=== PATIENT | male | born 1955 | race Caucasian/White ===

== ENCOUNTER → 2018-08-24 | Outpatient (CLI) | payer OTHER ==
[2018-08-24 11:16] LABS: Basophils # (A) 0.1 k/uL (0-0.2); Basophils % (A) 2 %; Eosinophils # (A) 0.2 k/uL (0-0.7); Eosinophils % (A) 3 %; HCT 44.3 % (39.0-53.0); HGB 14.7 gm/dL (13.0-17.5); Lymphocytes # (A) 1.6 k/uL (1.0-4.8); Lymphocytes % (A) 24 %; MCH 29.9 pg (25.0-35.0); MCHC 33.3 g/dL (31.0-37.0); MCV 89.9 fL (80.0-100.0); Mean Platelet Volume 6.4; Monocytes # (A) 0.6 k/uL (0-1.0); Monocytes % (A) 8 %; Neutrophils # (A) 4.1 k/uL (1.3-7.7); Neutrophils % (A) 60 %; Platelet Count 315 k/uL (150-450); RBC 4.93 m/uL (4.30-5.90); RDW 12.4 % (11.5-15.5); WBC 6.8 k/uL (3.8-10.6)
[2018-08-24 16:39] LABS: Albumin 4.5 g/dL (3.80-4.90); Albumin/Globulin Ratio 2.25 (1.60-3.17); Anion Gap 8.5 mmol/L (4.00-12.00); Calcium 9.2 mg/dL (8.7-10.3); Carbon Dioxide 26.5 mmol/L (21.6-31.8); Potassium 4.8 mmol/L (3.5-5.5); Total Bilirubin 0.4 mg/dL (0.3-1.2); Total Protein 6.5 g/dL (6.2-8.2)
== END | disposition home or self-care (01) ==
LOC: LABWHC1 10:30
PROVIDERS: ATTEND Surgery
DX: K81.1 Chronic cholecystitis (principal)
CPT/HCPCS: 36415; 80053; 85025

== ENCOUNTER 2018-08-31 08:27 | Inpatient (IN) | payer OTHER ==
[2018-08-31] MEDS ORDERED: HYDROmorphone 0.5 MG/0.5 ML SYRINGE IVP STA (08:34)
[2018-08-31] MEDS ORDERED: SODIUM CHLORIDE 0.9% 1,000 ML IV STA ×2 (08:34)
[2018-08-31] MEDS ORDERED: ONDANSETRON 4 MG/2 ML VIAL IVP STA (08:34)
--- NOTE | 2018-08-31 08:40 | ED ---
Abdominal Pain HPI - General Source: patient, RN notes reviewed Mode of arrival: ambulatory Limitations: no limitations <Noah Vaughan - Last Filed: 08/31/18 10:57> <Venkata Hunter - Last Filed: 08/31/18 11:12> - General Chief Complaint: Abdominal Pain Stated Complaint: Gallbladder issue Time Seen by Provider: 08/31/18 08:33 - History of Present Illness Initial Comments: 62-year-old male presents emergency Department with chief complaint of abdominal pain. Patient had issues ongoing for last 6 months but have worsened in the last month especially last few days. He states the pain was so unbearable last night he cannot sleep. Patient states that he is scheduled for cholecystectomy tomorrow by Dr. evans Patient states that he does have some current nausea no vomiting no diarrhea no constipation. He has had Ultram past which shows evidence of gallstones. Patient reports no fevers or chills no chest pain or shortness of breath. (Noah Vaughan) - Related Data Home Medications Medication Instructions Recorded Confirmed Omeprazole [PriLOSEC] 40 mg PO DAILY 07/18/18 08/31/18 Tamsulosin HCl [Flomax] 0.4 mg PO DAILY 07/18/18 08/31/18 Zolpidem Tartrate [Ambien] 10 mg PO HS PRN 07/18/18 08/31/18 Acetaminophen Tab [Tylenol Tab] 1,000 mg PO Q6HR PRN 08/31/18 08/31/18 Allergies Allergy/AdvReac Type Severity Reaction Status Date / Time No Known Allergies Allergy Verified 08/31/18 08:44 Review of Systems ROS Other: All systems not noted in ROS Statement are negative. <Noah Vaughan - Last Filed: 08/31/18 10:57> ROS Other: All systems not noted in ROS Statement are negative. <Venkata Hunter - Last Filed: 08/31/18 11:12> ROS Statement: Those systems with pertinent positive or pertinent negative responses have been documented in the HPI. Past Medical History Past Medical History: GERD/Reflux History of Any Multi-Drug Resistant Organisms: None Reported Additional Past Surgical History / Comment(s): HEMORRHOIDECTOMY Past Anesthesia/Blood Transfusion Reactions: No Reported Reaction Past Psychological History: No Psychological Hx Reported Smoking Status: Former smoker Past Alcohol Use History: Occasional - Past Family History Mother Sister(s) Family Medical History: Cancer <Noah Vaughan - Last Filed: 08/31/18 10:57> General Exam General appearance: alert, in no apparent distress Head exam: Present: atraumatic, normocephalic, normal inspection Neck exam: Present: normal inspection. Absent: tenderness, meningismus, lymphadenopathy Respiratory exam: Present: normal lung sounds bilaterally. Absent: respiratory distress, wheezes, rales, rhonchi, stridor Cardiovascular Exam: Present: regular rate, normal rhythm, normal heart sounds. Absent: systolic murmur, diastolic murmur, rubs, gallop, clicks GI/Abdominal exam: Present: soft, tenderness (Moderate right upper quadrant), normal bowel sounds. Absent: distended, guarding, rebound, rigid Back exam: Absent: CVA tenderness (R), CVA tenderness (L) Skin exam: Present: warm, dry, intact, normal color. Absent: rash <Noah Vaughan - Last Filed: 08/31/18 10:57> Course <Venkata Hunter - Last Filed: 08/31/18 11:12> Vital Signs 08/31/18 08:28 Temperature 98.8 F Pulse Rate 87 Respiratory 18 Rate Blood Pressure 151/88 O2 Sat by Pulse 98 Oximetry - Reevaluation(s) Reevaluation #1: 08/31/18 11:11 PA supervision: I proceeded [id number] evaluation patient did discuss findings with the patient has . Patient does present with abdominal pain and elevated bilirubin as well as LFTs. Patient was scheduled to have his gallbladder removed tomorrow he will be admitted to Dr. wendi jasmine which did discuss the case with consultation by Dr. Puri who I also did notify. Also GI will be consulted. (Venkata Hunter) Medical Decision Making - Lab Data Result diagrams: 08/31/18 08:52 08/31/18 10:05 <Noah Vaughan - Last Filed: 08/31/18 10:57> - Lab Data Result diagrams: 08/31/18 08:52 08/31/18 10:05 <Venkata Hunter - Last Filed: 08/31/18 11:12> - Medical Decision Making 62-year-old male presents emergency department for increase abdominal pain. Patient is scheduled for cholecystectomy tomorrow. Patient lab work, IV pain medication, antiemetics and fluid hydration. Patient has evidence of transaminitis, hyperbilirubinemia most likely related to choledocholithiasis. Patient will be admitted to Dr. Evans service with consult GI and medicine. (Noah Vaughan) - Lab Data Lab Results 08/31/18 08/31/18 08/31/18 Range/Units 08:52 09:15 10:05 WBC 11.8 H (3.8-10.6) k/uL RBC 5.45 (4.30-5.90) m/uL Hgb 16.4 (13.0-17.5) gm/dL Hct 49.5 (39.0-53.0) % MCV 90.8 (80.0-100.0) fL MCH 30.1 (25.0-35.0) pg MCHC 33.1 (31.0-37.0) g/dL RDW 13.6 (11.5-15.5) % Plt Count 291 (150-450) k/uL Neutrophils % 82 % Lymphocytes % 7 % Monocytes % 8 % Eosinophils % 1 % Basophils % 1 % Neutrophils # 9.7 H (1.3-7.7) k/uL Lymphocytes # 0.8 L (1.0-4.8) k/uL Monocytes # 0.9 (0-1.0) k/uL Eosinophils # 0.1 (0-0.7) k/uL Basophils # 0.1 (0-0.2) k/uL Sodium 141 (137-145) mmol/L Potassium 4.3 (3.5-5.1) mmol/L Chloride 108 H (98-107) mmol/L Carbon Dioxide 26 (22-30) mmol/L Anion Gap 7 mmol/L BUN 10 (9-20) mg/dL Creatinine 0.81 (0.66-1.25) mg/dL Est GFR (CKD-EPI)AfAm >90 (>60 ml/min/1.73 sqM) Est GFR (CKD-EPI)NonAf >90 (>60 ml/min/1.73 sqM) Glucose 88 (74-99) mg/dL Calcium 8.8 (8.4-10.2) mg/dL Total Bilirubin 4.8 H (0.2-1.3) mg/dL AST 132 H (17-59) U/L ALT 305 H (21-72) U/L Alkaline Phosphatase 323 H (38-126) U/L Total Protein 6.6 (6.3-8.2) g/dL Albumin 3.8 (3.5-5.0) g/dL Lipase 184 (23-300) U/L Urine Color Dark Brown Urine Appearance Clear (Clear) Urine pH 6.0 (5.0-8.0) Ur Specific [place] 1.024 (1.001-1.035) Urine Protein Trace H (Negative) Urine Glucose (UA) Negative (Negative) Urine Ketones 2+ H (Negative) Urine Blood Small H (Negative) Urine Nitrite Negative (Negative) Urine Bilirubin 3+ H (Negative) Urine Urobilinogen 3.0 (<2.0) mg/dL Ur Leukocyte Esterase Negative (Negative) Urine RBC 1 (0-5) /hpf Urine WBC 1 (0-5) /hpf Urine Mucus Rare H (None) /hpf Disposition <Noah Vaughan - Last Filed: 08/31/18 10:57> <Venkata Hunter - Last Filed: 08/31/18 11:12> Clinical Impression: Cholelithiasis, Hyperbilirubinemia, Transaminitis, Abdominal pain Disposition: ADMITTED IP TO THIS HOSP Condition: Fair Referrals: Fercho Abraham MD [Primary Care Provider] - 1-2 days
[2018-08-31 09:46] LABS: Basophils # (A) 0.1 k/uL (0-0.2); Basophils % (A) 1 %; Eosinophils # (A) 0.1 k/uL (0-0.7); Eosinophils % (A) 1 %; HCT 49.5 % (39.0-53.0); HGB 16.4 gm/dL (13.0-17.5); Lymphocytes # (A) 0.8 k/uL (1.0-4.8); Lymphocytes % (A) 7 %; MCH 30.1 pg (25.0-35.0); MCHC 33.1 g/dL (31.0-37.0); MCV 90.8 fL (80.0-100.0); Mean Platelet Volume 7.5; Monocytes # (A) 0.9 k/uL (0-1.0); Monocytes % (A) 8 %; Neutrophils # (A) 9.7 k/uL (1.3-7.7); Neutrophils % (A) 82 %; Platelet Count 291 k/uL (150-450); RBC 5.45 m/uL (4.30-5.90); RDW 13.6 % (11.5-15.5); WBC 11.8 k/uL (3.8-10.6)
[2018-08-31 10:15] LABS: Appearance,Urine Clear (Clear); Bilirubin,Urine 3+ (Negative); Blood,Urine Small (Negative); Color,Urine Dark Brown; Glucose,Urine (UA) Negative (Negative); Ketones,Urine 2+ (Negative); Leukocyte Esterase,Urine Negative (Negative); Mucus,Urine Rare /hpf; Nitrite,Urine Negative (Negative); Protein,Urine Trace (Negative); RBC,Urine 1 /hpf (0-5); Specific Gravity,Urine 1.024 (1.001-1.035); WBC,Urine 1 /hpf (0-5)
[2018-08-31 10:32] LABS: ALT 305 U/L (21-72); AST 132 U/L (17-59); Albumin 3.8 g/dL (3.5-5.0); Alkaline Phosphatase 323 U/L (38-126); Anion Gap 7 mmol/L; Blood Urea Nitrogen 10 mg/dL (9-20); Calcium 8.8 mg/dL (8.4-10.2); Carbon Dioxide 26 mmol/L (22-30); Chloride 108 mmol/L (98-107); Glucose 88 mg/dL (74-99); Lipase 184 U/L (23-300); Sodium 141 mmol/L (137-145); Total Bilirubin 4.8 mg/dL (0.2-1.3); Total Protein 6.6 g/dL (6.3-8.2)
[2018-08-31 10:33] LABS: Potassium 4.3 mmol/L (3.5-5.1)
[2018-08-31] MEDS ORDERED: ONDANSETRON 4 MG/2 ML VIAL IVP PRN (11:10)
[2018-08-31] MEDS ORDERED: HYDROmorphone 1 MG/ML 1 ML SYRINGE IVP PRN (11:10)
[2018-08-31] MEDS ORDERED: NALOXONE 0.4 MG/ML 1 ML VIAL IV PRN (11:10)
[2018-08-31] MEDS ORDERED: PIPERACILLIN-TAZOBACTAM 3.375 GM in SODIUM CHLORIDE 0.9% 100 ML IVPB STA (12:07)
[2018-08-31] MEDS: HYDROmorphone 0.5 MG/0.5 ML SYRINGE IVP PRN ×2 (12:13→15:27)
[2018-08-31] MEDS: SODIUM CHLORIDE 0.9% 1,000 ML IV SCH ×2 (14:17→21:38)
[2018-08-31] MEDS ORDERED: IOPAMIDOL-300 CONTRAST 30 ML VIAL (ORAL USE) PO PRN (16:36)
[2018-08-31] MEDS ORDERED: MAGNESIUM HYDROXIDE 2,400 MG/10 ML CUP PO PRN (16:36)
--- NOTE | 2018-08-31 16:39 | P.GSHP ---
History of Present Illness H&P Date: 08/31/18 Chief Complaint: Choledocholithiasis 62-year-old male presents to the ER today with right upper quadrant pain. Patient known to our service from an evaluation last week. He was actually scheduled for surgery next week. He contacted our office yesterday and his cholecystectomy was moved up to tomorrow. The patient had labs checked 1 week ago. His bilirubin was normal at that time. Today he came to the ER with increasing pain and noticed that his urine and skin were turning yellowish brown. His appetite is somewhat diminished. No fevers. White blood cell count slightly elevated. Patient's symptoms have been going on for the last 4-5 months. Only recently did have an ultrasound showing gallstones. Patient's bilirubin elevated at 4. - Review of Systems Comment: The patient denies any acute changes in vision or hearing, no dysphagia or odynophagia, no chest pain or shortness of breath, no dysuria or hematuria, no headache, no runny nose, no rectal bleeding or melena, no unexplained weight loss Past Medical History Past Medical History: GERD/Reflux, Skin Disorder Additional Past Medical History / Comment(s): Rosacia, small hiatal hernia, gallbladder disease-to have cholecystectomy 09/01/18. History of Any Multi-Drug Resistant Organisms: None Reported Additional Past Surgical History / Comment(s): 07/20/18 EGD with bx, colonoscopy, hemorrhoidectomy Past Anesthesia/Blood Transfusion Reactions: No Reported Reaction Smoking Status: Former smoker - Past Family History Mother Sister(s) Family Medical History: No Reported History Additional Family Medical History / Comment(s): Mother was healthy. She lived to be 87yrs old. Father Additional Family Medical History / Comment(s): Father had heart problems- pacer/valve. He lived to be 95yrs old. Medications and Allergies Home Medications Medication Instructions Recorded Confirmed Type Omeprazole [PriLOSEC] 40 mg PO DAILY 07/18/18 08/31/18 History Tamsulosin HCl [Flomax] 0.4 mg PO DAILY 07/18/18 08/31/18 History Zolpidem Tartrate [Ambien] 10 mg PO HS PRN 07/18/18 08/31/18 History Acetaminophen Tab [Tylenol Tab] 1,000 mg PO Q6HR PRN 08/31/18 08/31/18 History Allergies Allergy/AdvReac Type Severity Reaction Status Date / Time No Known Allergies Allergy Verified 08/31/18 08:44 Surgical - Exam Vital Signs Temp Pulse Resp BP Pulse Ox 98.8 F 87 18 151/88 98 08/31/18 08:28 08/31/18 08:28 08/31/18 08:28 08/31/18 08:28 08/31/18 08:28 Physical exam: General: Well-developed, well-nourished HEENT: Normocephalic, sclerae icteric Abdomen: Epigastric and right upper quadrant tenderness noted, nondistended Extremities: No edema Neuro: Alert and oriented Results - Labs 08/31/18 08:52 08/31/18 10:05 Abnormal Lab Results - Last 24 Hours (Table) 08/31/18 08/31/18 08/31/18 Range/Units 08:52 09:15 10:05 WBC 11.8 H (3.8-10.6) k/uL Neutrophils # 9.7 H (1.3-7.7) k/uL Lymphocytes # 0.8 L (1.0-4.8) k/uL Chloride 108 H (98-107) mmol/L Total Bilirubin 4.8 H (0.2-1.3) mg/dL AST 132 H (17-59) U/L ALT 305 H (21-72) U/L Alkaline Phosphatase 323 H (38-126) U/L Urine Protein Trace H (Negative) Urine Ketones 2+ H (Negative) Urine Blood Small H (Negative) Urine Bilirubin 3+ H (Negative) Urine Mucus Rare H (None) /hpf Diabetes panel 08/31/18 Range/Units 10:05 Sodium 141 (137-145) mmol/L Potassium 4.3 (3.5-5.1) mmol/L Chloride 108 H (98-107) mmol/L Carbon Dioxide 26 (22-30) mmol/L BUN 10 (9-20) mg/dL Creatinine 0.81 (0.66-1.25) mg/dL Glucose 88 (74-99) mg/dL Calcium 8.8 (8.4-10.2) mg/dL AST 132 H (17-59) U/L ALT 305 H (21-72) U/L Alkaline Phosphatase 323 H (38-126) U/L Total Protein 6.6 (6.3-8.2) g/dL Albumin 3.8 (3.5-5.0) g/dL Calcium panel 08/31/18 Range/Units 10:05 Calcium 8.8 (8.4-10.2) mg/dL Albumin 3.8 (3.5-5.0) g/dL Pituitary panel 08/31/18 Range/Units 10:05 Sodium 141 (137-145) mmol/L Potassium 4.3 (3.5-5.1) mmol/L Chloride 108 H (98-107) mmol/L Carbon Dioxide 26 (22-30) mmol/L BUN 10 (9-20) mg/dL Creatinine 0.81 (0.66-1.25) mg/dL Glucose 88 (74-99) mg/dL Calcium 8.8 (8.4-10.2) mg/dL Adrenal panel 08/31/18 Range/Units 10:05 Sodium 141 (137-145) mmol/L Potassium 4.3 (3.5-5.1) mmol/L Chloride 108 H (98-107) mmol/L Carbon Dioxide 26 (22-30) mmol/L BUN 10 (9-20) mg/dL Creatinine 0.81 (0.66-1.25) mg/dL Glucose 88 (74-99) mg/dL Calcium 8.8 (8.4-10.2) mg/dL Total Bilirubin 4.8 H (0.2-1.3) mg/dL AST 132 H (17-59) U/L ALT 305 H (21-72) U/L Alkaline Phosphatase 323 H (38-126) U/L Total Protein 6.6 (6.3-8.2) g/dL Albumin 3.8 (3.5-5.0) g/dL Assessment and Plan (1) Choledocholithiasis Narrative/Plan: Will start clear liquid diet. Continue empiric antibiotics. Consult GI for ERCP. CT abdomen and pelvis ordered to rule out other pathology. Current Visit: Yes Status: Acute Code(s): K80.50 - CALCULUS OF BILE DUCT W/O CHOLANGITIS OR CHOLECYST W/O OBST SNOMED Code(s): 159197331
[2018-08-31] MEDS ORDERED: KETOROLAC 30 MG/ML 1 ML VIAL IM SCH (18:00)
--- NOTE | 2018-08-31 18:32 | CT ---
EXAMINATION TYPE: CT abdomen pelvis w con DATE OF EXAM: 08/31/2018 COMPARISON: None HISTORY: Abdominal pain. elevated liver enzymes. jaundice CT DLP: 684 mGycm Automated exposure control for dose reduction was used. TECHNIQUE: Helical acquisition of images was performed from the lung bases through the pelvis. CONTRAST: Performed without Oral Contrast and with IV Contrast, patient injected with 100 mL of Isovue 300. FINDINGS: Lung bases are clear of consolidation. There is no pleural effusion. Heart size is fairly normal. The re is no pericardial effusion. There is mildly dilated biliary tree. Intrahepatic bile ducts are dilated. Common bile duct measures 11 mm. There is distended gallbladder with single 1 cm calcified gallstone. There is phrygian cap. Ga llbladder measures 3 cm in diameter. Spleen appears normal. Stomach is intact. There is no pancreatic mass. Pancreatic duct is not dilated . There is no adrenal mass. Kidneys show satisfactory contrast opacification. There is no hydronephrosi s. There is 1 cm cortical cyst anterior left kidney. There is 1 cm cortical cyst posterior right kidn ey. Ureters are not dilated. Bladder distends smoothly. There is no free fluid in the pelvis. There i s no inguinal hernia. There is no retroperitoneal adenopathy. There is no ascites. There is no free air. There is no mesenteric edema. Appendix appears normal. I see no bony destructive process. Lumbar spine is intact. IMPRESSION: Dilated biliary tree. No pancreatic mass seen. Single calcified gallstone. Obstruction at distal comm on bile duct is suspected. MRCP exam would be helpful for further evaluation if clinically indicated.
[2018-08-31] MEDS: KETOROLAC 30 MG/ML 1 ML VIAL IVP SCH ×2 (18:58→23:38)
[2018-08-31] MEDS: PIPERACILLIN-TAZOBACTAM 3.375 GM in SODIUM CHLORIDE 0.9% 100 ML IVPB SCH (21:05)
[2018-08-31] MEDS ORDERED: ZOLPIDEM 10 MG TAB PO PRN (22:19)
[2018-08-31] MEDS: ENOXAPARIN 40 MG/0.4 ML SYRINGE SQ SCH (23:39)
[2018-09-01] MEDS ORDERED: ceFAZolin IN SWFI 2 GM/20 ML SYRINGE IVP ONE (05:00)
[2018-09-01] MEDS ORDERED: HEPARIN SODIUM,PORCINE 5,000 UNIT/ML 1 ML VIAL SQ ONE (05:00)
[2018-09-01] MEDS: PIPERACILLIN-TAZOBACTAM 3.375 GM in SODIUM CHLORIDE 0.9% 100 ML IVPB SCH ×2 (05:19→18:33)
[2018-09-01] MEDS: KETOROLAC 30 MG/ML 1 ML VIAL IVP SCH (05:20)
[2018-09-01] MEDS ORDERED: PANTOPRAZOLE 40 MG TABLET PO SCH (07:30)
[2018-09-01] MEDS: ENOXAPARIN 40 MG/0.4 ML SYRINGE SQ SCH (07:35)
[2018-09-01] MEDS: TAMSULOSIN 0.4 MG CAP.ER.24H PO SCH ×2 (07:35→22:47)
[2018-09-01] MEDS: SODIUM CHLORIDE 0.9% 1,000 ML IV SCH ×2 (07:38→18:34)
--- NOTE | 2018-09-01 08:41 | CONS ---
CONSULTATION DATE OF CONSULTATION: 08/31/2018 REASON FOR CONSULTATION: Medical management requested by Dr. Lloyd. CONSULTATION: This is a pleasant 62-year-old patient of Dr. Abraham's whose chronic stable medical conditions include GERD, rosacea, chronic insomnia, BPH. Patient has been having abdominal pain, nausea, coming on for some time. Patient is scheduled for surgery by Dr. Lloyd tomorrow. Patient's symptoms became worse and decided to come in. There were no fever, chills. The patient noted his urine to become more dark. Did have a CT scan in the ER that showed dilated gallbladder with dilated intra biliary duct and gallstones. ERCP is being contemplated. Also, hyperbilirubinemia is present. When I saw this patient earlier this evening, abdominal pain had greatly improved. REVIEW OF SYSTEMS: CONSTITUTIONAL: Tired. HEENT: None. RESPIRATORY: None. CARDIOVASCULAR: None. GASTROINTESTINAL: As above. GENITOURINARY: Occasional BPH symptoms. DERMATOLOGICAL: Facial changes with rosacea. NEUROLOGICAL: None. PAST MEDICAL HISTORY: GERD, rosacea, insomnia, BPH. PAST SURGICAL HISTORY: Hemorrhoidectomy. SOCIAL HISTORY: Patient is a dentist. . Does not smoke. Drinks alcohol occasionally. FAMILY HISTORY: Reviewed, noncontributory to presentation. HOME MEDICATIONS: 1. Ambien 10 mg p.o. q.h.s. p.r.n. 2. Flomax 0.4 mg p.o. daily. 3. Prilosec 40 mg p.o. daily. 4. Tylenol 1000 mg q.6 p.r.n. ALLERGIES: None. PHYSICAL EXAMINATION: Temperature 98.8, pulse 87, respiration 18, blood pressure 150/88, pulse ox 98% on room air. GENERAL APPEARANCE: Average built, sitting up, not in distress. EYES: Pupils equal, conjunctivae are normal. HEENT: External appearance of nose and ears normal, oral cavity normal. NECK: JVD not raised. Mass not palpable. RESPIRATORY: Effort normal. LUNGS: Fair entry. CARDIOVASCULAR: First and second sounds normal, no edema. Mild right upper quadrant tenderness. No guarding or rigidity. Liver and spleen not palpable. LYMPHATIC: No lymph node palpable in the neck and axilla. PSYCHIATRY: Alert and oriented x3. Mood and affect normal. NEUROLOGICAL: Pupils equal, cranial nerves grossly intact. Power and sensation grossly intact. INVESTIGATIONS: White count 11.8, hemoglobin 16.4 potassium 4.3. BUN and creatinine are normal. Bilirubin 4.8, AST 132, ALT 305, alk phos 323, lipase 184. CT scan of the abdomen shows dilated gallbladder, dilated intra hepatic ducts and gallstones. ASSESSMENT: 1. Possible acute: cholecystitis in a patient with stone in the gallbladder with secondary obstructive jaundice. 2. Gastroesophageal reflux disease. 3. Chronic rosacea. 4. Idiopathic chronic insomnia. 5. Benign prostatic hypertrophy for which patient is on Flomax. 6. Hyperbilirubinemia from above. PLAN: Patient is admitted. Patient is on IV Zosyn. Home medications will be resumed. Patient will need an ERCP followed by cholecystectomy. It is possible patient may pass a stone before that. Care was discussed with the patient, questions were answered. Will give Lovenox for DVT prophylaxis. The patient also getting IV fluids. Thank you, Dr. Lloyd. VAL / JOEN: [id number] /
[2018-09-01 09:37] LABS: ALT 278 U/L (21-72); AST 124 U/L (17-59); Albumin 3.9 g/dL (3.5-5.0); Alkaline Phosphatase 366 U/L (38-126); Anion Gap 7 mmol/L; Blood Urea Nitrogen 14 mg/dL (9-20); Calcium 9.4 mg/dL (8.4-10.2); Carbon Dioxide 29 mmol/L (22-30); Chloride 104 mmol/L (98-107); Glucose 84 mg/dL (74-99); Potassium 4.5 mmol/L (3.5-5.1); Sodium 140 mmol/L (137-145); Total Bilirubin 6.2 mg/dL (0.2-1.3); Total Protein 6.7 g/dL (6.3-8.2)
[2018-09-01 10:51] VITALS: BMI 22.7
--- NOTE | 2018-09-01 11:01 | P.PN ---
Subjective Progress Note Date: 09/01/18 Principal diagnosis: Choledocholithiasis Patient says his pain is continuing. Seems to be fairly well controlled with Toradol. Urine remained dark. Bilirubin 6.2 today. CAT scan noted. No definite mass seen. Dilated biliary tree appreciated. Objective - Vital Signs Vital signs: Vital Signs Temp 98.2 F 09/01/18 07:00 Pulse 52 L 09/01/18 07:00 Resp 16 09/01/18 09:54 BP 128/77 09/01/18 07:00 Pulse Ox 97 09/01/18 07:00 Intake & Output 08/31/18 09/01/18 09/01/18 18:59 06:59 18:59 Intake Total 100 1445 Balance 100 1445 Weight 73.936 kg 73.936 kg Intake: Intake, IV Titration 100 1125 Amount Piperacillin-Tazobactam 3 250 .375 gm In Sodium Chloride 0.9% 100 ml @ 200 mls/hr IVPB ONCE STA Rx#:[id number] Piperacillin-Tazobactam 3 100 200 .375 gm In Sodium Chloride 0.9% 100 ml @ 25 mls/hr IVPB Q8H LAUREN Rx#: [id number] Sodium Chloride 0.9% 1, 675 000 ml @ 75 mls/hr IV . [id number] STA Rx#:[id number] Oral 320 Other: Voiding Method Toilet Toilet # Voids 2 2 - Exam Abdomen: Soft, nondistended, mild right upper quadrant tenderness - Labs CBC & Chem 7: 08/31/18 08:52 09/01/18 08:25 Labs: Abnormal Lab Results - Last 24 Hours (Table) 09/01/18 Range/Units 08:25 Total Bilirubin 6.2 H (0.2-1.3) mg/dL AST 124 H (17-59) U/L ALT 278 H (21-72) U/L Alkaline Phosphatase 366 H (38-126) U/L Assessment and Plan (1) Choledocholithiasis Narrative/Plan: Keep nothing by mouth for possible ERCP today. Continue empiric antibiotics. Current Visit: Yes Status: Acute Code(s): K80.50 - CALCULUS OF BILE DUCT W/O CHOLANGITIS OR CHOLECYST W/O OBST SNOMED Code(s): 058427168
--- NOTE | 2018-09-01 11:18 | P.CONS ---
History of Present Illness - Reason for Consult Consult date: 09/01/18 Abdominal pain choledocholithiasis Requesting physician: Nickolas Puri - Chief Complaint Abdominal pain - History of Present Illness 62-year-old male admitted with acute right upper quadrant abdominal pain changes in color of urine elevated liver enzymes jaundice. Denies unexplained weight loss, fever chills hematemesis hematochezia melena. Patient was scheduled for outpatient cholecystectomy this week for symptomatically gallstones. Over the last several months patient is been experiencing intermittent abdominal discomfort thought it was GERD related. He underwent EGD evaluation 07/20/[address] Vital with findings of small sliding hiatal hernia no evidence of complicated reflux disease. Mild antral gastritis. Patient reports he had ultrasound within the past month that identified gallstones. No history of known liver disorders. No history of alcoholism. No changes in medications. No changes in diet or recent travels. Abdominal pain was present over the weekend but worsened earlier this week he noticed his urine to be more darker in color but denies acholic stools. CT abdomen and pelvis reported mildly dilated biliary tree with dilation of intrahepatic bile ducts. CBD 11 mm. Distended gallbladder with calcified gallstone. Obstruction at distal common bile duct is suspected. LFTs were normal on 08/24/2018. Admission LFTs 08/31/2018 total bilirubin 4.8. AST 132. ALT 305. AP 323. Today LFTs a porcine total bilirubin 6.2. AST 124. ALT 278. AP 366. Lipase 184. White count 11.8. Hemoglobin 16.4. Review of Systems Constitutional: Denies fever, chills, sweats, weight gain, or loss. HEENT: Negative for migraines, blurred vision or loss, earaches, drainage, tinnitus, oral mucosal lesions, dysphagia, or odynophagia. Cardiac: Negative for chest pain, arrhythmias, or palpitation. Respiratory: Negative for shortness of breath, hemoptysis, cough, or sputum production. Gastrointestinal: See HPI for pertinent findings. Genitourinary: Negative for hematuria, urgency, frequency, polyuria, dysuria, or penile discharge. Musculoskeletal: Negative for muscle aches, swelling, arthritis, and a rthralgias. Neurologic: Negative for stroke or TIA. Endocrine: Negative for thyroid problems. Skin: Negative for rash or itching. Psychiatric: Negative history for depression and anxiety Past Medical History Past Medical History: GERD/Reflux, Skin Disorder Additional Past Medical History / Comment(s): Rosacia, small hiatal hernia, gallbladder disease-to have cholecystectomy 09/01/18. History of Any Multi-Drug Resistant Organisms: None Reported Additional Past Surgical History / Comment(s): 07/20/18 EGD with bx, colonoscopy, hemorrhoidectomy Past Anesthesia/Blood Transfusion Reactions: No Reported Reaction Smoking Status: Former smoker - Past Family History Mother Sister(s) Family Medical History: No Reported History Additional Family Medical History / Comment(s): Mother was healthy. She lived to be 87yrs old. Father Additional Family Medical History / Comment(s): Father had heart problems-pacer/valve. He lived to be 95yrs old. Medications and Allergies Home Medications Medication Instructions Recorded Confirmed Type Omeprazole [PriLOSEC] 40 mg PO DAILY 07/18/18 08/31/18 History Tamsulosin HCl [Flomax] 0.4 mg PO DAILY 07/18/18 08/31/18 History Zolpidem Tartrate [Ambien] 10 mg PO HS PRN 07/18/18 08/31/18 History Acetaminophen Tab [Tylenol Tab] 1,000 mg PO Q6HR PRN 08/31/18 08/31/18 History Allergies Allergy/AdvReac Type Severity Reaction Status Date / Time No Known Allergies Allergy Verified 08/31/18 08:44 Physical Exam Vitals: Vital Signs Temp Pulse Pulse Resp BP BP Pulse Ox 09/01/18 09:54 16 09/01/18 07:00 98.2 F 52 L 16 128/77 97 09/01/18 01:30 98.3 F 62 16 121/64 97 08/31/18 19:49 97.9 F 68 18 121/75 97 08/31/18 16:00 66 16 08/31/18 15:08 98.8 F 66 16 154/77 96 08/31/18 11:30 85 18 150/95 Intake and Output 08/31/18 09/01/18 09/01/18 22:59 06:59 14:59 Intake Total 670 775 Balance 670 775 Intake: Intake, IV Titration 350 775 Amount Piperacillin-Tazobactam 3 250 .375 gm In Sodium Chloride 0.9% 100 ml @ 200 mls/hr IVPB ONCE STA Rx#:[id number] Piperacillin-Tazobactam 3 100 100 .375 gm In Sodium Chloride 0.9% 100 ml @ 25 mls/hr IVPB Q8H [facility] Rx#: [id number] Sodium Chloride 0.9% 1, 675 000 ml @ 75 mls/hr IV . [id number] STA Rx#:[id number] Oral 320 Other: Voiding Method Toilet Toilet # Voids 2 Weight 73.936 kg General appearance: The patient is alert, oriented, in no acute distress. On this. HET: Head is normocephalic and atraumatic. Pupils are equal and reactive. Oropharynx is clear without lesions. Sclerae icterus. Neck: Supple without lymphadenopathy. Trachea midline. Heart: S1 S2. Regular rate and rhythm. Lungs: No crackles or wheezes are heard. Abdomen: Soft, mild tenderness to the right upper quadrant, nondistended with bowel sounds. No peritoneal signs. No palpable organomegaly or masses. Extremities: Normal skin color and turgor. No cyanosis, rash, ulceration, clubbing, or edema. Radial and pedal pulses are 2/4 bilaterally. Neurological: No focal deficits. Strength and sensation are grossly intact.exam Results CBC & Chem 7: 08/31/18 08:52 09/01/18 08:25 Labs: Abnormal Lab Results - Last 24 Hours (Table) 09/01/18 Range/Units 08:25 Total Bilirubin 6.2 H (0.2-1.3) mg/dL AST 124 H (17-59) U/L ALT 278 H (21-72) U/L Alkaline Phosphatase 366 H (38-126) U/L CT scan - abdomen: report reviewed (Dr. Powell) Assessment and Plan (1) Obstructive jaundice Narrative/Plan: 62-year-old gentleman with a reported history of cholelithiasis previous normal liver function tests presents with new onset of jaundice and elevated liver enzymes as well as intermittent abdominal pain for 6 months duration status post recent EGD in outpatient setting with unremarkable findings. CT abdomen and pelvis reported dilation of biliary tree intrahepatic biliary duct dilatation, CBD measured 11 mm with calcified gallstone and suspected distal CBD obst ruction. LFTs have worsened since admission presently total bilirubin is 6.2 with persistent abdominal pain. Current Visit: Yes Status: Acute Code(s): K83.1 - OBSTRUCTION OF BILE DUCT SNOMED Code(s): 70365342 (2) Abdominal pain Current Visit: Yes Status: Acute Code(s): R10.9 - UNSPECIFIED ABDOMINAL PAIN SNOMED Code(s): 48449328 (3) Choledocholithiasis Current Visit: Yes Status: Acute Code(s): K80.50 - CALCULUS OF BILE DUCT W/O CHOLANGITIS OR CHOLECYST W/O OBST SNOMED Code(s): 783825006 Plan: 1. ERCP. Daily monitoring of CMP. Check PT/INR. 2. DC toradol poses increased sphincterotomy bleeding. 3. NPO x meds. IV abx. The tractor mechanic has discussed the risks, benefits and alternative therapies for the above-mentioned procedure and for both sedation/analgesia as well as necessary blood product administration, if indicated, as they pertain to this patient. The patient has indicated understanding and acceptance of the risks and procedures discussed. Thank you for this kind referral and the opportunity to participate in the care of your patient. This consultation was discussed with Dr. Powell. The impression and plan of care have been directed as dictated.
[2018-09-01] MEDS: HYDROmorphone 0.5 MG/0.5 ML SYRINGE IVP PRN (12:51)
[2018-09-01] MEDS ORDERED: INDOMETHACIN 50MG SUPPOSITORY RECTAL ONE (13:00)
[2018-09-01 14:37] LABS: INR 0.9 (<1.2); Prothrombin Time 10.1 sec (9.0-12.0)
[2018-09-01] MEDS ORDERED: PROPOFOL 10 MG/ML 20 ML VIAL IV ONE (14:56)
[2018-09-01] MEDS ORDERED: NEOSTIGMINE 1 MG/ML 10 ML VIAL ONE (14:56)
[2018-09-01] MEDS ORDERED: GLYCOPYRROLATE 0.2 MG/ML 2 ML VIAL ONE (14:56)
[2018-09-01] MEDS ORDERED: ROCURONIUM BROMIDE 10 MG/ML 10 ML VIAL IV ONE (14:56)
[2018-09-01] MEDS ORDERED: LIDOCAINE 1% INJ 10MG/ML (20 ML MDV) ONE (14:56)
[2018-09-01] MEDS ORDERED: ePHEDrine SULFATE/0.9% NACL/PF 50 MG/5 ML SYRINGE IV ONE (14:56)
[2018-09-01] MEDS ORDERED: IV FLUID CONTINUATION 1,000 ML IV ONE ×2 (15:15)
[2018-09-01] MEDS ORDERED: LACTATED RINGERS 1,000 ML IV ONE (15:49)
[2018-09-01] MEDS ORDERED: IOPAMIDOL-300 50ML BTL INJ ONE (16:55)
[2018-09-01 17:47] VITALS: RESP 18
--- NOTE | 2018-09-01 18:00 | P.PCN ---
Date of Procedure: 09/01/18 Description of Procedure: Brief history: 62-year-old male admitted with acute right upper quadrant abdominal pain changes in color of urine elevated liver enzymes jaundice. Patient reports he had ultrasound within the past month that identified gallstones. No history of known liver disorders. No history of alcoholism. No changes in medications. No changes in diet or recent travels. Abdominal pain was present over the weekend but worsened earlier this week he noticed his urine to be more darker in color but denies acholic stools. CT abdomen and pelvis reported mildly dilated biliary tree with dilation of intrahepatic bile ducts. CBD 11 mm. Distended gallbladder with calcified gallstone. Obstruction at distal common bile duct is suspected.LFTs were normal on 08/24/2018. Admission LFTs 08/31/2018 total bilirubin 4.8. AST 132. ALT 305. AP 323. Today LFTs a porcine total bili flores 6.2. AST 124. ALT 278. AP 366. Lipase 184. White count 11.8. Hemoglobin 16.4. Procedure performed: Aborted/Failed ERCP Preoperative diagnoses: Elevated bilirubin, obstructed common bile duct, suspected choledocholithiasis IV sedation per anesthesia Estimated blood loss: Minimal. Procedure: After informed consent was obtained from the patient and after the risks benefits and complications including bleeding perforation and pancreatitis explained in detail the patient was brought into the endoscopy unit. The patient was placed in prone position and IV conscious sedation was administered by anesthesia under continuous monitoring. The Olympus side-viewing duodenoscope was then inserted into the mouth and esophagus intubated without any difficulty. The scope was gradually advanced into the stomach and duodenum. The major papilla was identified without any difficulty. Initially a sphincterotome and wire were used with attempted cannulation of the common bile duct, however multiple attempts at cannulation and passing of the wire into the CBD were unsuccessful. The pancreatic duct was cannulated and a small amount of dye was injected into the pancreatic duct. At this point after numerous failed attempts at cannulation of the CBD the procedure was aborted. Suspicion is for a distal common bile duct stone. The patient tolerated the procedure well. Impression: 1. Aborted/failed ERCP with concern for a distal CBD stone. Recommendations: The findings of this examination were discussed with the patient as well as a family. Okay for liquids at this time. Plan is for transfer to [facility] and consultation with the advanced endoscopy team.
[2018-09-01] MEDS ORDERED: TRIMETHOBENZAMIDE 300 MG CAP PO PRN (18:32)
[2018-09-01 20:34] VITALS: BP 161/80; PULSE 78; TEMP 97.8
--- NOTE | 2018-09-02 12:46 | PN ---
PROGRESS NOTE DATE OF SERVICE: 09/01/2018. PRESENTING COMPLAINT: Abdominal pain. INTERVAL HISTORY: Patient presented with acute cholecystitis. There is stone in the gallbladder with secondary obstructive jaundice. Taken for the ERCP today, it was unsuccessful. I discussed this with Dr. Powell. The patient is being transferred to an outpatient place. The patient started to get some right upper quadrant pain. Patient's and daughter at the bedside when I saw this patient. REVIEW OF SYSTEMS: Done for constitutional, cardiovascular, GI, pulmonary; relevant findings as above. CURRENT MEDICATIONS: Current medications are reviewed. PHYSICAL EXAMINATION: On examination, temperature 97.8, pulse 78, respiration 14, blood pressure 161/80, pulse ox 99% on room air. GENERAL APPEARANCE: Tired appearing. EYES: Pupils equal. Conjunctivae normal. NECK: JVD not raised. Mass not palpable. RESPIRATORY: Effort normal. LUNGS: Clear. CARDIOVASCULAR: First and second sounds normal. No edema. ABDOMEN: Mild right upper quadrant tenderness. No guarding or rigidity. PSYCHIATRY: Alert and oriented x3. Mood and affect tired appearing. INVESTIGATIONS: Pro time was 10.1. Labs from this morning showed AST 124, ALT 278. ASSESSMENT: 1. Acute cholecystitis in a patient with stone in the gallbladder with secondary obstructive jaundice. 2. Unsuccessful attempt at stone removal or sphincterotomy with ERCP. 3. Gastroesophageal reflux disease. 4. Chronic rosacea. 5. Idiopathic chronic insomnia. 6. Benign prostatic hypertrophy for which patient is on Flomax. 7. Hyperbilirubinemia from above. PLAN: Discussed with Dr. Powell. Did talk to the patient. The patient awaiting transfer out to another higher center for higher level of care. Thank you, Dr. Lloyd. MMDAXL / JOEN: [id number] /
== END 2018-09-01 22:53 | disposition short-term general hospital (02) | DRG 445 ==
LOC: EC 08:27 → 4SSUR 11:11
PROVIDERS: ADMIT Surgery; ATTEND Surgery
PROC: 0FJB8ZZ Inspection of Hepatobiliary Duct, Via Natural or Artificial Opening Endoscopic (ICD-10-PCS; principal; 2018-09-01 08:45)
DX: K80.63 Calculus of gallbladder and bile duct with acute cholecystitis with obstruction (principal); R17 Unspecified jaundice; F51.04 Psychophysiologic insomnia; K21.9 Gastro-esophageal reflux disease without esophagitis; K29.70 Gastritis, unspecified, without bleeding; L71.9 Rosacea, unspecified; N40.0 Benign prostatic hyperplasia without lower urinary tract symptoms; Z79.899 Other long term (current) drug therapy; Z87.891 Personal history of nicotine dependence
CPT/HCPCS: 36415; 43260; 74177; 80053; 81001; 83690; 85025; 85610; 96361; 96374; 96375; 99284

== ENCOUNTER 2021-07-17 06:47 | Day surgery (SDC) | payer MEDICARE, OTHER ==
[2021-07-15 12:39] VITALS: BMI 24.4
[~2021-07-17 06:47] MED LIST: LACTATED RINGERS 1,000 ML IV SCH; LIDOCAINE 1% (10MG/ML) FOR IV START INTRADERMA PRN
[2021-07-17 07:04] VITALS: TEMP 97.6
[2021-07-17] MEDS ORDERED: LIDOCAINE 1% INJ 10MG/ML (20 ML MDV) ONE (07:47)
[2021-07-17] MEDS ORDERED: PROPOFOL 10 MG/ML 20 ML VIAL IV ONE (07:47)
--- NOTE | 2021-07-17 08:14 | P.PCN ---
Date of Procedure: 07/17/21 Procedure(s) Performed: Brief history: Patient is a pleasant 65-year-old pleasant white male scheduled for an elective upper endoscopy as well as colonoscopy as a part of evaluation GERD and screening for colon cancer Procedure performed: Esophagogastroduodenoscopy biopsy Colonoscopy with snare polypectomy Preoperative diagnosis: GERD Screening for colon cancer Anesthesia: MAC Procedure: After informed consent was obtained from the patient was brought into the endoscopy unit and IV sedation was administered by anesthesia under continuous monitoring. Initially upper endoscopy was done. The Olympus GF 160 video endoscope was inserted inserted into the mouth and esophagus intubated without any difficulty and was gradually advanced into the stomach and duodenum and carefully examined. The bulb and second part of the duodenum appeared normal. The scope was then withdrawn into the stomach adequately insufflated with air and upon careful examination the antrum and mild gastritis and biopsies were done from this area. The body, cardia and fundus appeared normal. moderate gastric polyps were noted which were biopsied. The scope was then withdrawn into the esophagus. The GE junction was located at 40 cm to the incisors. It appeared regular with no erythema erosions or ulcerations. Rest of the esophagus appeared normal. Patient tolerated the procedure well. At this time the patient continued to remain sedation. Initial digital rectal examination was normal. Olympus CF 160 video colonoscope was then inserted into the rectum and gradually advanced to the cecum without any difficulty. Careful examination was performed as the scope was gradually being withdrawn. The prep was excellent. The cecum, appeared normal. Ascending colon there was a 3 mm and 7 mm polyp removed by snare polypectomy. In the transverse colon there was a 5 mm sessile polyp removed by snare polypectomy. Rest of the ascending colon, transverse colon, descending colon, sigmoid colon and rectum appeared normal. In the distal rectum there was a 1 cm flat polyp removed by snare polypectomy. Retroflexion was performed in the rectum and no lesions were noted. Patient tolerated the procedure well. Impression: 1. Upper endoscopy revealed mild gastritis and small gastric polyps. No evid ence of esophagitis or Hare's esophagus 2. Colonoscopy revealed: a) 3 mm and 7 mm ascending colon polyp status post polypectomy b) 5 mm transverse colon polyp status post polypectomy c) 1 cm distal rectal polyp serous posterior polypectomy Recommendations: Findings of this examination were discussed with the patient as well as as well as his family. He was advised to follow with the biopsy results. If the biopsy results adenoma he can have a repeat colonoscopy in 3 years..
[2021-07-17 08:19] VITALS: RESP 16
[2021-07-17 08:33] VITALS: BP 119/70; PULSE 80
== END 2021-07-17 08:58 | disposition home or self-care (01) ==
LOC: ORWHC2ENDO 06:47
PROVIDERS: ATTEND Internal Medicine Gastroenterology
DX: Z12.11 Encounter for screening for malignant neoplasm of colon (principal); D12.2 Benign neoplasm of ascending colon; D12.3 Benign neoplasm of transverse colon; K62.1 Rectal polyp; K29.50 Unspecified chronic gastritis without bleeding; K21.9 Gastro-esophageal reflux disease without esophagitis; K31.7 Polyp of stomach and duodenum
CPT/HCPCS: 45385; 43239; 88305; J2001; J2704

== ENCOUNTER 2023-03-04 10:32 | Day surgery (SDC) | payer MEDICARE, OTHER ==
[2023-03-01 11:33] VITALS: BMI 24.3
[~2023-03-04 10:32] MED LIST changes: +DEXAMETHASONE SOD PHOSPHATE 4 MG/ML 1 ML VIAL IV ONE; +HYDROmorphone 0.5 MG/0.5 ML SYRINGE IVP PRN; -LIDOCAINE 1% (10MG/ML) FOR IV START INTRADERMA PRN; +MIDAZOLAM 2 MG/2 ML VIAL IV PRN; +ONDANSETRON 4 MG/2 ML VIAL IVP ONE
[2023-03-04] MEDS ORDERED: ePHEDrine 50 MG/ML 1 ML VIAL ONE (11:46)
[2023-03-04] MEDS ORDERED: PROPOFOL 10 MG/ML 20 ML VIAL IV ONE (11:46)
[2023-03-04] MEDS ORDERED: LIDOCAINE 1% INJ 10MG/ML (20 ML MDV) ONE (11:46)
[2023-03-04] MEDS ORDERED: fentaNYL (PF) 50 MCG/ML 2 ML AMP ONE (11:46)
[2023-03-04] MEDS ORDERED: MIDAZOLAM 2 MG/2 ML VIAL ONE (11:46)
[2023-03-04] MEDS ORDERED: ceFAZolin 1,000 MG in SODIUM CHLORIDE 0.9% 1,000 ML IRRIGATION ONE (11:55)
[2023-03-04] MEDS ORDERED: BUPIVACAINE (PF) 0.5% 30 ML VIAL SQ ONE (11:59)
[2023-03-04 13:18] VITALS: TEMP 97
[2023-03-04 13:41] VITALS: RESP 16
[2023-03-04 14:52] VITALS: BP 138/79; PULSE 60
--- NOTE | 2023-03-07 19:28 | OP ---
OPERATIVE REPORT DATE OF SERVICE : 03/04/2023 PREOPERATIVE DIAGNOSES: 1. Bony cyst, right first metatarsal head. 2. Primary osteoarthritis, right first metatarsophalangeal joint. POSTOPERATIVE DIAGNOSES: 1. Bony cyst, right first metatarsal head. 2. Primary osteoarthritis, right first metatarsophalangeal joint. PROCEDURES PERFORMED: 1. Repair of bone cyst with allograft, right foot. 2. Cheilectomy without implant, right first metatarsophalangeal joint. ANESTHESIA: General. HEMOSTASIS: Right ankle tourniquet at 250 mmHg. ESTIMATED BLOOD LOSS: Approximately 62 mL. MATERIALS: [employer] BioCartilage and [employer] AlloSync. INJECTABLES: 20 mL of 0.25% Marcaine preop. SPECIMENS: None. COMPLICATIONS: None. DESCRIPTION OF PROCEDURE: The patient was brought to the operating room, placed on table in the supine position. A time-out was taken to confirm correct patient identifiers, correct laterality of surgical procedure. Once all staff in the room were in agreement with the time- out, the patient was induced and placed under general anesthesia. Prior to the prep and drape, the anterior medial ankle was prepped with skin prep and under sterile conditions, a trocar with cannula was placed through the skin into the distal tibia superior to the ankle joint and once it was advanced in the medullary canal, 60 mL of medullary blood was then extracted. Both of those syringes were then passed off the field to the [employer] medical detail representative to spin down for bone marrow aspirate concentrate. Once that was completed, a well-padded tourniquet was placed in the right calf and the right foot was prepped and draped in usual manner. The foot was exsanguinated and the tourniquet was inflated to 250 mmHg. Attention was directed to the dorsomedial aspect of the first metatarsophalangeal joint, where an incision was made between the long extensor tendon and neurovascular structures. The incision was deepened down to the subcutaneous tissue carefully to identify avoid retracting neurovascular structures and cauterize any bleeding vessels. Blunt dissection was carried down to the level of the first metatarsophalangeal joint capsule. Capsular incision was made medial to the long extensor tendon. The capsular tissues were reflected from their osseous attachments of the first metatarsal head and base of the proximal phalanx. There were osteophytes present on the dorsal aspect of the first metatarsal head and base of the proximal phalanx that were all removed with a rongeur and smoothed with a rasp. Then, the joint was distracted so that the articular cartilage of the first metatarsal head could be well visualized. There was significant cartilage loss, especially on the lateral half of the first metatarsal head that showed full-thickness loss. There is also fraying of the central aspect of the cartilage, where the subchondral cyst was located. The loosened portions of cartilage were all sharply debrided. A drill bit was then used to drill out the subchondral cyst. It was also used to fenestrate the areas of bone that had the absence of any articular cartilage. Once that was completed, the area was thoroughly irrigated with antibiotic saline. The AlloSync was then mixed with the bone marrow aspirate, which was then placed into the bony defects 2 mm short of the bone surface and once that was completed, the marrow aspirate was mixed with the BioCartilage and then that was placed over the cartilage defects in the cyst to resurface the area. Once that was resurfaced, Tisseel was placed over the BioCartilage to solidify the place. The joint was held distracted as it solidified for the 5 required minutes and the joint was reduced very carefully and placed back into position. The wound was carefully irrigated with antibiotic saline. The capsule was closed with 2-0 Vicryl, subcutaneous closed with 4-0 Monocryl, skin closure done with 4- 0 Stratafix in a running subcuticular manner. Dermal glue was placed across the incision as well as Steri-Strips, an Arthrex jumpstart dressing, and then a dry sterile dressing. The tourniquet was released. Capillary refill returned to all digits on the right foot. The patient was placed in a well-padded well-molded plaster posterior mold/sugar-tong splint with the ankle held in neutral position. Anesthesia was reversed and the patient was taken to Recovery with vital signs stable. MMODL / IJN: [id number] / ASTON
== END 2023-03-04 15:10 | disposition home or self-care (01) ==
LOC: OR 10:32
PROVIDERS: ATTEND Podiatrist
DX: M85.671 Other cyst of bone, right ankle and foot (principal); K30 Functional dyspepsia; K21.9 Gastro-esophageal reflux disease without esophagitis; Z98.890 Other specified postprocedural states; Z79.83 Long term (current) use of bisphosphonates; Z79.899 Other long term (current) drug therapy
CPT/HCPCS: 28103; 38220; 28289; 26530; C1713; J2250; J1100; J0690 ×2; J2405; J2001; J3010; J2704; J0665